=== PATIENT | male | born 1965 | race Two or more races ===

== ENCOUNTER 2021-09-26 17:33 | Emergency (ER) | payer SELFPAY ==
[~2021-09-26] VITALS: Ht 160 cm; Wt 83.5 kg
[2021-09-26] MEDS ORDERED: cloNIDine HCL 0.1 MG TAB PO ONE (17:45)
[2021-09-26 18:44] LABS: Basophils # (auto) 0.1 10 ^3/uL (0-0.2); Eosinophils # (auto) 0.4 10 ^3/uL (0-0.8); Hematocrit 42.9 % (41.0-53.0); Hemoglobin 14.5 g/dL (13.5-17.5); Lymphocytes # (auto) 2.5 10 ^3/uL (0.4-5.4); Lymphocytes % (auto) 39.6 % (10.0-50.0); Mean Corpuscular Hemoglobin 28.1 pg (28.0-32.0); Mean Corpuscular Hgb Conc. 33.9 g/dL (32.0-36.0); Monocytes # (auto) 0.4 10 ^3/uL (0-1.3); Monocytes % (auto) 6.9 % (0.0-12.0); Neutrophils # (auto) 2.8 10 ^3/uL (1.6-8.6); Neutrophils % (auto) 45.5 % (37.0-80.0); Nucleated Red Blood Cells % 0.1 %; Red Blood Cells 5.16 10^6/uL (4.5-5.90); Red Cell Distribution Width 13.6 % (11.8-14.3); White Blood Cell 6.2 10^3/uL (4.4-10.8)
[2021-09-26 19:01] LABS: Albumin 3.6 g/dL (3.4-5.0); BUN/Creatinine Ratio 12.1; Calcium 8.5 mg/dL (8.5-10.1); Potassium 4.2 mmol/L (3.5-5.1)
[2021-09-26 19:08] LABS: Bilirubin, Total 0.4 mg/dL (0.2-1.0); Total Protein 7.2 g/dL (6.4-8.2)
[2021-09-26 21:20] VITALS: BP 153/95
== END 2021-09-26 21:51 | disposition home or self-care (01) ==
LOC: ER 17:33
DX: I16.0 Hypertensive urgency (principal)
CPT/HCPCS: 36415; 71046; 80053; 84484; 85025; 93005